=== PATIENT | male | born 1935 | race Caucasian/White ===

== ENCOUNTER 2019-09-25 22:06 | Inpatient (IN) | payer OTHER, MEDICARE ==
[~2019-09-25] VITALS: Ht 170.2 cm; Wt 80.0 kg
--- NOTE | ~2019-09-25 | EMS ---
[address] [address] EMS Patient Care Report Name: BITA MASCORRO V Room #: REG AYUSH Sears#: [id number] Admission: 09/25/19 Attend Phys: Discharge: Date of : 37 Report #: [id number] THIS REPORT FOR: //name// Report Transmitted: 09/25/2019 22:24 EMS Care Summary [facility] MED-ACT Incident [id number] @ 09/25/2019 21:23 Incident Location [address] [place] [address] Patient SILVIA MASCORRO Male, 84 Years 1935 Patient Address [address] [place] [address] Patient History Hypertension (HTN), Patient Allergies Codeine, Patient Medications Keppra, Gabapentin, Cozaar, Metformin, Celebrex, Pravastatin, Chief Complaint "He said, 'Pain' and then vomitted .." Disposition Transported No Lights/[place] Dispatch Reason Falls Transported To [facility] Narrative "He said, 'Pain' and vomited.. I found him lying on the bathroom floor" [address] [address] EMS Patient Care Report Name: BITA MASCORRO V Room #: REG [place]#: [id number] Admission: 09/25/19 Attend Phys: Discharge: Date of : 37 Report #: [id number] responded with S47 on a PT that had fallen. Upon our arrival the PT was found lying on his right side in his bed of the [facility] facility, unresponsive and breathing. The staff report that they had found the PT lying on the bathroom floor when they came to check on a medication patch that was located on his back. The staff report that they had moved the PT to his bed and that the PT declared the word, "Pain" and vomited one time containing normal stomach contents and now appears to be acting altered. The staff denied that the PT was referring to a specific area or location. The PT's son arrived at the facility and reported that the PT is normally able to hold a conversation yet is very stubborn and requires assistance hearing and uses hearing aids. The PT's son reports that the PT had his urine sent out today to be tested for a UTI and that they are still awaiting results. The PT's son advised that the PT does not have any past medical history involving pulmonary issues. The PT's son mentioned that the PT has not had any general complaints over the past few days. The facility staff report that the PT has his temperature checked twice a day and has been fever free. The staff also mentioned that the PT does not normally wear Oxygen. The PT was slid from his bed to the cot using a draw sheet, draped with a sheet and secured using the cot straps provided. The PT was then attached to the panelboard operator and an IV was established prior to movement to the ambulance. Treatment - Assessment, Vital Signs, 3 Lead EKG, 12 Lead EKG, IV 20 GA Left Forearm, Normal Saline 300 cc's via IV, Blood Glucose Analysis (216 mg/dL), End Tidal Capnography via Nasal Cannula, Oxygen via Non Rebreather at 15 LPM The PT's son and facility staff requested the PT be transported to [facility]. The PT remained the same throughout the duration of our care opening his eyes occasionally, tracking responders and moving his arms to include pulling off his facemask and Nasal Cannula. The PT was delivered to exam room 8 and a verbal report was given to the attending RN without incident. Initial Vitals @22:00P: 137,R: 23,BP: 132/79,Pain: 0/10,GCS: 9,EtCO2: 18,SpO2: 81,Revised Trauma: 11,VA Suspected: false @21:53P: 136,R: 22,Pain: 0/10,GCS: 9,SpO2: 78,VA Suspected: false @21:41P: 137,R: 22,Pain: 0/10,GCS: 9,SpO2: 73,VA Suspected: false @21:50P: 135,R: 22,BP: 101/68,Pain: 0/10,GCS: 9,SpO2: 77,Revised Trauma: 11,VA Suspected: false @21:58P: 130,R: 22,Pain: 0/10,GCS: 9,EtCO2: 21,SpO2: 85,VA Suspected: false @21:42P: 136,R: 22,BP: 76/51,Pain: 0/10,GCS: 9,SpO2: 69,Revised Trauma: 10,VA Suspected: false @21:46P: 136,R: 22,BP: 91/59,Pain: 0/10,GCS: 9,SpO2: 68,Revised Trauma: 11,VA Suspected: false @21:49P: 133,R: 22,Pain: 0/10,GCS: 9,SpO2: 76,VA Suspected: false @21:55P: 135,R: 29,Pain: 0/10,GCS: 9,EtCO2: 22,SpO2: 77,VA Suspected: false @21:35P: 146,R: 22,Pain: 0/10,GCS: 9,SpO2: 73,VA Suspected: false [facility] [address] [place] [address] EMS Patient Care Report Name: BITA MASCORRO V Room #: REG [facility]#: [id number] Admission: 09/25/19 Attend Phys: Discharge: Date of : 36 Report #: [id number] @21:42P: 134,R: 22,Pain: 0/10,GCS: 15,SpO2: 68,VA Suspected: false @21:37P: 144,R: 22,BP: 115/62,Pain: 0/10,GCS: 9,Glucose: 216,SpO2: 82,Revised Trauma: 11,VA Suspected: false Assessments @21:36MENTAL:Unresponsive,SKIN:Pale,HEENT:Eyes: No Abnormalities,Neck/Airway: No Abnormalities,LUNG SOUNDS:General: Vomiting,ABDOMEN:General: Vomiting,PELVIS//GI:No Abnormalities,EXTREMITIES:Left Arm: No Abnormalities,Right Arm: No Abnormalities,PULSE:NEURO: Impression Altered Mental Status Procedures @21:5312-Lead ECGResponse: UnchangedSucceeded@21:4212-Lead ECGResponse: UnchangedSucceeded@21:43Oxygen FlowRate: 2 Device: Nasal Cannula (NC) Response: UnchangedSucceeded@21:57Oxygen FlowRate: 10 Device: Non Re-breather Mask (NRB) Response: UnchangedSucceeded@21:55Oxygen FlowRate: 2 Device: CO2 Nasal Cannula Response: UnchangedSucceeded@21:42Saline Lock 10cc (20 ga) Site: Forearm-LeftResponse: UnchangedSucceeded@21:54Normal Saline (.9% NaCl) 300cc () Site: Forearm-LeftResponse: Improved Timeline 21:21,Call Received 21:21,Psap Call 21:23,Dispatched 21:25,En Route 21:32,On Scene 21:34,At Patient 21:35,BP: / M,PULSE: 146,RR: 22 R,SPO2: 73 Ox,ETCO2: ,BG: ,PAIN: 0,GCS: 9, 21:37,BP: 115/62 M,PULSE: 144,RR: 22 R,SPO2: 82 Ox,ETCO2: ,B,PAIN: 0,GCS: 9, 21:41,BP: / M,PULSE: 137,RR: 22 R,SPO2: 73 Ox,ETCO2: ,BG: ,PAIN: 0,GCS: 9, 21:42,Saline Lock 10cc 20 ga Site: Forearm-Left,Response: UnchangedSucceeded, 21:42,BP: 76/51 M,PULSE: 136,RR: 22 R,SPO2: 69 Ox,ETCO2: ,BG: ,PAIN: 0,GCS: 9, 21:42,12-Lead ECG,Response: UnchangedSucceeded, 21:42,BP: / M,PULSE: 134,RR: 22 R,SPO2: 68 Ox,ETCO2: ,BG: ,PAIN: 0,GCS: 15, 21:43,Oxygen FlowRate: 2 Device: Nasal Cannula (NC) Response: UnchangedSucceeded, 21:46,BP: 91/59 M,PULSE: 136,RR: 22 R,SPO2: 68 Ox,ETCO2: ,BG: ,PAIN: 0,GCS: 9, 21:49,BP: / M,PULSE: 133,RR: 22 R,SPO2: 76 Ox,ETCO2: ,BG: ,PAIN: 0,GCS: 9, 21:50,BP: 101/68 M,PULSE: 135,RR: 22 R,SPO2: 77 Ox,ETCO2: ,BG: ,PAIN: 0,GCS: 9, 21:53,12-Lead ECG,Response: UnchangedSucceeded, 21:53,BP: / M,PULSE: 136,RR: 22 R,SPO2: 78 Ox,ETCO2: ,BG: ,PAIN: 0,GCS: 9, 21:54,Normal Saline (.9% NaCl) 300cc Site: Forearm-Left,Response: Improved 21:55,Oxygen FlowRate: 2 Device: CO2 Nasal Cannula Response: UnchangedSucceeded, [facility] [address] [place] [address] EMS Patient Care Report Name: BITA MASCORRO V Room #: REG [facility].#: [id number] Admission: 09/25/19 Attend Phys: Discharge: Date of : 37 Report #: [id number] 21:55,BP: / M,PULSE: 135,RR: 29 R,SPO2: 77 Ox,ETCO2: 22 ,BG: ,PAIN: 0,GCS: 9, 21:55,Depart Scene 21:57,Oxygen FlowRate: 10 Device: Non Re-breather Mask (NRB) Response: UnchangedSucceeded, 21:58,BP: / M,PULSE: 130,RR: 22 R,SPO2: 85 Ox,ETCO2: 21 ,BG: ,PAIN: 0,GCS: 9, 22:00,BP: 132/79 M,PULSE: 137,RR: 23 R,SPO2: 81 Ox,ETCO2: 18 ,BG: ,PAIN: 0,GCS: 9, 22:04,At Destination 22:35,Call Closed Disclaimer v1.1 Copyright 2020 [employer] This EMS Care Summary contains data elements from the applicable legal record (which may be displayed differently). It is designed to provide pertinent information for the following purposes: continuity of care, clinical quality, and state data reporting. The complete legal record is available to ED staff and administrators of the receiving hospital in [facility]'s Patient Tracker. All data is provided "as is."
--- NOTE | ~2019-09-25 | EEG ---
[facility] [place] [address] ELECTROENCEPHALOGRAM Name: BITA MASCORRO V Room #: 452-P [facility] IN M.R.#: [id number] Admission: 09/26/19 Attend Phys: Stanley Acuna MD Discharge: 10/01/19 Date of : 36 Report #: [id number] THIS REPORT FOR: //name// CC: Valerio Acuna DATE OF SERVICE: 09/29/2019 This patient's EEG was done to evaluate for altered mental status. EEG is severely abnormal and disorganized. It was done by using the 10-20 system of electrode placement and both referential and sequential montages were used for recording. Background activity in this patient is low voltage and difficult to determine, but it stays about 4 Hz. No active epileptiform activity was noted. IMPRESSION: This is a severely abnormal EEG, which is very disorganized and poorly formed. That is a nonspecific finding, which can occur with encephalopathy, effect of psychotropic medication, dementia, etc. No active epileptiform activity was noticed during this record. Thank you very much for this referral. By: 0916 0922 Edgar Ramírez MD /nt
[2019-09-25 22:07] VITALS: BP 135/75
[2019-09-25 22:30] LABS: ABSOLUTE NEUTROPHILS 2.6 thou/uL (1.4-8.2); BASOPHILS 0.3 % (0.0-2.0); HEMATOCRIT 38.8 % (42.0-52.0); HEMOGLOBIN 13.4 gm/dL (14.0-18.0); LYMPHOCYTES 14.6 % (24.0-44.0); MCH 36.2 pg (26.0-34.0); MCHC 34.5 g/dL (28.0-37.0); MCV 104.9 fL (80.0-100.0); MONOCYTES 2.2 % (1.0-8.0); PLATELET COUNT 322 thou/uL (150-400); POLYS 81.9 % (36.0-66.0); RBC 3.69 mil/uL (4.50-6.00); RDW 13.6 % (10.5-14.5); WBC 3.2 thou/uL (4.0-11.0)
[2019-09-25 22:42] LABS: URINE BILIRUBIN NEGATIVE (Negative); URINE BLOOD NEGATIVE (Negative); URINE CLARITY CLEAR; URINE COLOR YELLOW; URINE GLUCOSE-RANDOM* NEGATIVE (Negative); URINE KETONES 1+ (Negative); URINE LEUKOCYTES-REFLEX NEGATIVE (Negative); URINE NITRITE-REFLEX NEGATIVE (Negative); URINE PROTEIN (DIPSTICK) NEGATIVE (Negative); URINE UROBILINOGEN 0.2 E.U./dl (0.2-1.0)
[2019-09-25 22:49] LABS: ALBUMIN 3.2 g/dL (3.4-5.0); ANION GAP 18 mmol/L (7-16); BUN 23 mg/dL (7-18); CALCIUM 8.6 mg/dL (8.5-10.1); CHLORIDE 100 mmol/L (98-107); CO2 16 mmol/L (21-32); CREATININE 1.5 mg/dL (0.7-1.3); GLUCOSE 220 mg/dL (74-106); POTASSIUM 4.3 mmol/L (3.5-5.1); SGOT 14 U/L (15-37); SGPT 13 U/L (30-65); SODIUM 134 mmol/L (136-145); TOTAL BILIRUBIN 0.6 mg/dL (0.2-1.0); TOTAL PROTEIN 6.7 g/dL (6.4-8.2); TROPONIN-I <0.06 ng/mL (<0.06)
[2019-09-26] VITALS (65 sets, daily range): BP systolic 87–149; BP diastolic 43–88
[2019-09-26] MEDS ORDERED: ARTIFICIAL TEAR1510 OPHTHALMIC (00:02)
[2019-09-26] MEDS ORDERED: ASA81BEC PO (00:02)
[2019-09-26] MEDS ORDERED: MUPIROCIN22 GM NASAL (00:04)
[2019-09-26] MEDS ORDERED: CELEBREX 200 M200 MG PO (00:10)
[2019-09-26] MEDS ORDERED: LAXATIVE SUPPOS10 MG RECTAL (00:11)
[2019-09-26] MEDS ORDERED: ACETAMINOPHEN325 MG PO (00:11)
[2019-09-26] MEDS ORDERED: COZAAR 25 MG TA25 M2 PO (00:12)
[2019-09-26] MEDS ORDERED: NEURONTIN 400M400 M2 PO (00:12)
[2019-09-26] MEDS ORDERED: GLIPIZIDE 10 MG10 MG PO (00:13)
[2019-09-26] MEDS ORDERED: GLUCOPHAGE1000 MG PO (00:13)
[2019-09-26] MEDS ORDERED: MIRALAX119 GM PO (00:13)
[2019-09-26] MEDS ORDERED: KEPPRA XR500 MG PO (00:14)
[2019-09-26] MEDS ORDERED: LIDODERM1 EACH TOP (00:14)
[2019-09-26] MEDS ORDERED: LOPERAMIDE2 MG PO (00:14)
[2019-09-26] MEDS ORDERED: PRAVACHOL40 MG PO (00:15)
[2019-09-26] MEDS ORDERED: NORTRIPTYLINE H10 M1 PO (00:15)
[2019-09-26] MEDS ORDERED: TRAMADOL 50 MG50 MG PO ×2 (00:16)
[2019-09-26] MEDS ORDERED: TRAZODONE HCL100 MG PO (00:17)
[2019-09-26 03:27] LABS: BE(vivo) -8.7 mmol/L (-2 to +3); HCO3 16.7 mmol/L (22.0-26.0); PCO2 34.4 mmHg (35.0-45.0); PO2 64.7 mmHg (80.0-100.0)
[2019-09-26 03:32] LABS: pH 7.305 (7.360-7.450)
[2019-09-26 04:27] LABS: CALCIUM 7.9 mg/dL (8.5-10.1); CREATININE 1.5 mg/dL (0.7-1.3)
[2019-09-26 04:28] LABS: POTASSIUM 5.6 mmol/L (3.5-5.1)
[2019-09-26 04:32] LABS: APTT 23.8 Seconds (24.5-32.8); FIBRINOGEN 344.7 mg/dL (210-360); INR 1.1; PROTIME 10.8 Seconds (9.3-11.4)
[2019-09-26 04:33] LABS: CHOLESTEROL 85 mg/dL (<200); HDL CHOLESTEROL 35 mg/dL (>40); LDL CHOLESTEROL 33 mg/dL (<100); TC:HDL 2.4 Ratio (Not establshd); TRIGLYCERIDE 88 mg/dL (<150); VLDL 18 mg/dL (<40)
[2019-09-26 04:41] LABS: SERUM ASSESSMENT Clear
--- NOTE | 2019-09-26 06:04 | NUR ---
PATIENT HAS A COCHLEAR IMPLANT THAT IS CURRENTLY WITH THE SON. PATIENT WAS HYPOXIC AND NOT ALERT ENOUGH TO WARRANT THE COCHLEAR IMPLANT. STAFF DID NOT WANT TO MISPLACE THE COCHLEAR IMPLANT, SO LEFT IT IN THE POSESSION OF THE SON
[2019-09-26 09:42] LABS: BE(vivo) -13.3 mmol/L (-2 to +3); HCO3 12.8 mmol/L (22.0-26.0); PCO2 30.8 mmHg (35.0-45.0); PO2 237.6 mmHg (80.0-100.0); pH 7.238 (7.360-7.450); sO2 99.4 % (92.0-98.0)
--- NOTE | 2019-09-26 10:34 | NUR ---
chart review. unable to visit with pt rt [facility] on ppe. covid pending. kim visited with [facility] cg at [facility]. " he is up with [facility], [facility] manage his medication, meals and laundry. had life alert on him, call light in bathroom and next to bed. has shower chair. no oxygen prior to hospital. he had been refusing this covid test here"/daycare manager. kim left message with son alma requested call back.
--- NOTE | 2019-09-26 12:45 | NUR ---
VAT PLACED 5FRTL IN RT IJ, TRIMMED AT 24CM INSERTED TO 20CM LOT#[id number] TIP AT THE CAJ, PLEASE SEE INSERTION NI FOR DETAILS
--- NOTE | 2019-09-26 14:45 | NUR ---
FAXED CLINICAL UPDATE TO THE [facility] SPOKE WITH LIAM IN ADM SHE RECEIVED REFERRAL AND WILL REVIEW. DP TO FOLLOW.
--- NOTE | 2019-09-26 16:06 | EKG ---
[facility] [place] [address] ELECTROCARDIOGRAM REPORT Name: BITA MASCORRO V Room #: 239-P ADM IN M.R.#: [id number] Admission: 09/26/19 Attend Phys: Stanley Acuna MD Discharge: Date of : 36 Report #: [id number] THIS REPORT FOR: cc: Valerio Go James D. DO Couchonnal, Luis F. MD ~ THIS REPORT FOR: //name// [facility] ED Test Date: 2019-09-25 Test Time: 22:35:25 Pat Name: BITA MASCORRO Department: Room: 239 Gender: M Fish And Wildlife Warden: jose eduardo jay rn : 1935 Requested By: Andry Huerta Order Number: [id number] MD: Matt Hdz Measurements Intervals [place] Rate: 134 P: 30 NH: 104 QRS: 30 QRSD: 134 T: 40 QT: 390 QTc: 583 Interpretive Statements Sinus tachycardia Right bundle branch block No previous ECG available for comparison Electronically Signed On 09-26-2019 16:05:50 CDT by Matt Hdz [email or web address] <ELECTRONICALLY SIGNED> By: Matt Hdz MD 09/26/19 1605 34 34 Matt Hdz MD /EPI
--- NOTE | 2019-09-26 16:20 | NUR ---
PT ADMITED TO ICU AT 0720 TO BEGIN SEPSIS PROTOCAL. UPON ARRIVAL PT HAS AMS AND INCREASED WORK OF BREATHING. PULMONARY WAS INFORMED AND THE DECISION TO INTUBATE WAS MADE. PT INTUBATED AT BEDSIDE AT 0845. CO2 DETECTION USED.
[2019-09-27] VITALS (76 sets, daily range): BP systolic 75–138; BP diastolic 42–89
[2019-09-27 01:06] LABS: GLYCOHEMOGLOBIN (HGB A1C) 5.4 % (4.8-5.6)
--- NOTE | 2019-09-27 03:33 | NUR ---
ASSUMED PT CARE A 1900. VSS. INTUBATED AND SEDATED. SEDATION VACATION FOR 10 MINUTES FROM PROPOFOL AND 40MCGS. HE FACIAL GRIMACES TO PAIN, REACHES FOR HIS TUBE, RANDOMLY MOVES HIS EXTREMITIES, GETS RESTLESS, WILL SQUEEZ HANDS BUT DOESNT FOLLOW COMMANDS. LEVO DOWN TO 4MCG FROM 8MC. PT TOLERATING TITRATION WELL. PT APPEARS STABLE, LOW GRADE FEVER NOTED, WILL CONTINUE TO CLOSLEY MONITOR
[2019-09-27 05:28] LABS: BE(vivo) -13.3 mmol/L (-2 to +3); HCO3 12.4 mmol/L (22.0-26.0); PCO2 28.2 mmHg (35.0-45.0); PO2 170.8 mmHg (80.0-100.0)
[2019-09-27 05:45] LABS: ABSOLUTE NEUTROPHILS 9.8 thou/uL (1.4-8.2); BASOPHILS 0.1 % (0.0-2.0); CALCIUM 7.4 mg/dL (8.5-10.1); CREATININE 1.1 mg/dL (0.7-1.3); HEMATOCRIT 29.3 % (42.0-52.0); MCH 36.6 pg (26.0-34.0); MCHC 34.8 g/dL (28.0-37.0); MCV 105.1 fL (80.0-100.0); MONOCYTES 2.3 % (1.0-8.0); POLYS 94.6 % (36.0-66.0); POTASSIUM 3.7 mmol/L (3.5-5.1); RBC 2.79 mil/uL (4.50-6.00); RDW 14.1 % (10.5-14.5); WBC 10.3 thou/uL (4.0-11.0)
[2019-09-27 05:46] LABS: HEMOGLOBIN 10.2 gm/dL (14.0-18.0); PLATELET COUNT 223 thou/uL (150-400)
[2019-09-27 09:50] LABS: CALCIUM 7.2 mg/dL (8.5-10.1); POTASSIUM 3.6 mmol/L (3.5-5.1)
--- NOTE | 2019-09-27 15:41 | NUR ---
Nutrition: NPO day 2 on vent. REC initiate tube feeds of Vital HP to reach 45 mL/hr goal rate.
--- NOTE | 2019-09-27 15:49 | NUR ---
ASSUMED CARE AT 0700. PATIENT PLACED ON SEDATION VACATION AND PATIENT WAS ABLE TO SQUEEZE HANDS AND OPEN EYES UPON REQUEST. MADE CONTACT WITH FAMILY AT 0800 AND UPDATED AND EDUCATED PATIENT AND FAMILY ON THE PLAN OF CARE. AFEBRILE. ADEQUATE UOP. CVP MONITORING IN PLACE. PATIENT HAD A SMALL BM. NEUROLOGY WAS CONSULTED. PROPOFOL @ 50 AND LEVOPHED @ 2. RT LOWERED PEEP FROM 10 TO 8 @ 1600 PER PULMONOLOGY. PATIENT PROGRESSING TOWARDS THE PLAN OF CARE. SPOKE WITH FAMILY AND THEY WOULD LIKE TO SPEAK WITH PHYSICIAN. DR. TOMLINSON GIVEN FAMILY'S INFORMATION AND NOTIFIED OF FAMILY'S REQUEST.
--- NOTE | 2019-09-27 16:13 | NUR ---
ORDERS RECEIVED YESTERDAY FOR PT EVAL AND TREAT. Pt WAS PENDING COVID TESTING AT THE TIME WHICH HAS SINCE COME BACK NEGATIVE. HOWEVER Pt WAS URGENTLY INTUBATED AND IS CURRENTLY ON VENTILATOR WITH PROPOFOL AND LEVO ON BOARD. D/T TRANSFER TO ICU FOR HIGHER LEVEL OF CARE AND NEED FOR INTUBATION, WILL NEED NEW PT CONSULT PRIOR TO INITIATING PT INTERVENTIONS WITH Pt ONCE MEDICALLY STABLE.
--- NOTE | 2019-09-27 20:09 | NUR ---
Received a call from Marck who stated that he was a medical doctor and brother in law to Emil EMERSON to the patient. He had the privacy code and asked for an update on patient. Stated that the patient is supposed to be DNR and that no Dr has spoken to the DPOA since the pt was admitted. He asked if I could contact the hospitalist and ask them to call the [facility].I called AUTOMATIC COIL MACHINE OPERATOR Tiffany and updated on the situation, she said she will call Emil the [facility] .l looked on the chart for and paperwork that states pt's code status, l could not find any paperwork from [facility] in [place] where the patient came from. I called the retirement at [phone] and spoke to Lauryn JOSHUA and she confirmed that pt was DNR, l asked her to fax the papers to ICU.
--- NOTE | 2019-09-27 23:37 | NUR ---
Pt's code status changed to intubation only and not to resuscitate, verified order with Ariana RN and DNR bracelet placed on pt.
[2019-09-28] VITALS (69 sets, daily range): BP systolic 87–166; BP diastolic 50–92
--- NOTE | 2019-09-28 03:59 | HC ---
[facility] [place] [address] CONSULTATION Name: BITA MASCORRO V Room #: 239-P [facility] IN M.R.#: [id number] Admission: 09/26/19 Attend Phys: Stanley Acuna MD Discharge: Date of : 36 Report #: [id number] THIS REPORT FOR: cc: Valerio Go James D. DO Khosla, Parveen K. MD ~ CC: Valerio Acuna DATE OF SERVICE: 09/27/2019 HISTORY OF PRESENT ILLNESS: This is an 84-year-old male patient who was intubated and he cannot provide any history at all. I talked to Dr. Gabriel earlier today and I talked to the nurses. This patient is sedated. This patient was admitted with significant amount of hypoxia. He apparently has a history of dementia and possible seizure. That is all the history I can get on him. We will try to get more history tomorrow. REVIEW OF SYSTEMS: A 14-point review of system, the best it could be carried from the record is that the patient has unsteadiness of the gait, generalized weakness, and hypertension. He is on Keppra at home. He does have a history of diabetes. I do not know whether he has a history of hypoglycemia or not. Presently, he is on propofol that is all the 14-point review of system I can get. PAST MEDICAL HISTORY: Positive for seizure, but I do not have any further description. FAMILY HISTORY: Unavailable. SOCIAL HISTORY: He lives in a assisted unit. PHYSICAL EXAMINATION: The patient's examination indicates the patient is unresponsive. He does not do anything for me. He did not move at all. He is intubated. Cardiac brooks, he is stable. 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 He also has a prior history of seizure. I need to get more history. I will get an EEG done and presently he is on propofol, which is a pretty good anticonvulsant, but we need to readjust the whole question of seizure by talking to the family and after an EEG to see what we can do to change his medication. [facility] [address] [place] [address] CONSULTATION Name: BITA MASCORRO V Room #: 239-P ADM IN M.R.#: [id number] Admission: 09/26/19 Attend Phys: Stanley Acuna MD Discharge: Date of : 37 Report #: [id number] Thank you very much for this referral and if you have any questions, please feel free to contact me. <ELECTRONICALLY SIGNED> By: Edgar Ramírez MD 09/28/19 0359 48 57 Edgar Ramírez MD /nt
[2019-09-28 05:31] LABS: HEMATOCRIT 29.1 % (42.0-52.0); HEMOGLOBIN 10.1 gm/dL (14.0-18.0); MCH 36.4 pg (26.0-34.0); MCHC 34.6 g/dL (28.0-37.0); MCV 105.2 fL (80.0-100.0); PLATELET COUNT 170 thou/uL (150-400); RBC 2.77 mil/uL (4.50-6.00); RDW 14.1 % (10.5-14.5); WBC 11.5 thou/uL (4.0-11.0)
[2019-09-28 05:49] LABS: CALCIUM 7.8 mg/dL (8.5-10.1); CREATININE 0.9 mg/dL (0.7-1.3); POTASSIUM 3.1 mmol/L (3.5-5.1)
--- NOTE | 2019-09-28 07:00 | NUR ---
ORDERS RECEIVED FOR OT EVAL AND TREAT, PATIENT WAS COVID TEST PENDING. RESULT IS NOW NEGATIVE HOWEVER PATIENT URGENTLY INTUBATED. D/T CHANGE IN MEDICAL STATUS, PATIENT TO BE PLACED ON HOLD AND WILL NEED NEW THERAPY ORDERS WHEN APPROPRIATE FOR INTERVENTION
--- NOTE | 2019-09-28 08:05 | NUR ---
cm received phone call from bedside nurse passing on that lawrence marquez had a friend physician call on their behalf upset stating that no md has called them and wanted cm to set up family phone call. cm education that anyone can pass on to md that family is requesting a phone call and if needed family phone meeting that can be set up. cm passed on information to hospitalist to call lawrence marquez at [phone].
[2019-09-28 08:54] LABS: FOLIC ACID 2.1 ng/mL (8.6-58.9); TSH 0.16 uIU/mL (0.358-3.740)
[2019-09-28 11:03] LABS: ABSOLUTE NEUTROPHILS 11.3 thou/uL (1.4-8.2)
[2019-09-28 11:04] LABS: ANISOCYTOSIS SLIGHT; BURR CELLS 1+; MACROCYTES SLIGHT; POIKILOCYTOSIS SLIGHT
--- NOTE | 2019-09-28 17:53 | NUR ---
1010 [facility], DISCUSSSES PATIENTS WISHES WITH DR. HERNANDEZ. FAMILY PLANS TO WITHDRAW CARE SOON. PATIENT COVID RESULTS RETURN NEGATIVE. CALLED INFECTIOUS DISEASE NURSE CORINNE TWICE AND LEFT A MESSAGE FOR DR. NAVA. AWAITING RETURNING CALL TO DETERMINE ISOLATION STATUS. REPLACD 40MEQ KCL. DECREASED RR FROM 20 TO 14. DECREASED PEEP 8 TO 6. WEANED OFF LEVOPHED AT 0851.
[2019-09-29] VITALS (60 sets, daily range): BP systolic 111–158; BP diastolic 51–99
[2019-09-29 04:28] LABS: BE(vivo) -9.9 mmol/L (-2 to +3); HCO3 14.8 mmol/L (22.0-26.0); PCO2 28.9 mmHg (35.0-45.0); PO2 102.8 mmHg (80.0-100.0); pH 7.328 (7.360-7.450); sO2 97.4 % (92.0-98.0)
[2019-09-29 05:34] LABS: HEMOGLOBIN 9.1 gm/dL (14.0-18.0); MCH 35.9 pg (26.0-34.0); MCHC 33.7 g/dL (28.0-37.0); MCV 106.5 fL (80.0-100.0); RBC 2.54 mil/uL (4.50-6.00); RDW 14.1 % (10.5-14.5); WBC 10.8 thou/uL (4.0-11.0)
[2019-09-29 06:02] LABS: CALCIUM 7.4 mg/dL (8.5-10.1); CREATININE 0.7 mg/dL (0.7-1.3)
[2019-09-29 06:04] LABS: POTASSIUM 2.8 mmol/L (3.5-5.1)
--- NOTE | 2019-09-29 06:11 | NUR ---
NOTIFIED OF CRITICAL POTASSIUM LEVEL OF 2.8. PRIMARY RN PATIENCE IN ANOTHER ROOM. NOTIFIED ELIZABETH BOB. ACTION INSTALLER 0.7. ORDER TO ADD ON MAG LEVEL TO AM LABS. ORDER TO ADMINISTER 60 MEQ OF POTASSIUM IV ONE TIME AND REDRAW POTASSIUM LEVEL AT 1300. ORDERS ENTERED. NOTIFIED PRIMARY RN OF NEW ORDERS.
--- NOTE | 2019-09-29 07:01 | NUR ---
Received a call from Dr Juarez, gave update on pt. Dr Juarez requesting that Dr HERNANDEZ call him when he rounds on patient. Freda JOSHUA now assuming care of pt and l passed on Dr Juarez's message to her.
--- NOTE | 2019-09-29 14:04 | NUR ---
pt remain intubate, tf for nutritional support. abnormal potassium lab today. kim spoke with son alma who stated " we just left there we spoke with md in icu waiting room, and just want call when get covid test results back and i think family going to decide to remove tube possible tomorrow. thank you for checking on us"/ lawrence marquez. [phone]. kim passed on information to bedside nurse to call lawrence marquez when get covid results back.
--- NOTE | 2019-09-29 19:01 | NUR ---
[address]. DR TABOR WITH FAMILY WELL. WAITING FOR SECOND SET OF COVID TESTS TO COME BACK, FIRST SET NEGATIVE. IF SECOND SET IS NEGATIVE, PT CAN COME OUT OF ISOLATION. FAMILY PLANS TO EXTUBATE TO PALLIATIVE CARE TOMORROW, 8-. CNO OK FOR 3 CHILDREN TO COME VISIT IN ROOM, SEPERATELY FOR 10-15 EACH. IF PT IS NOT NEGATIVE, FAMILY WILL HAVE TO GOWN UP AND NOT ABLE TO TOUCH PT.
--- NOTE | 2019-09-29 20:08 | NUR ---
RECEIVED A CALL FROM KIMBERLEY MASCORRO WHO IS DPOA, UPDATED HIM THAT SECOND COVID TEST IS STILL PENDING, AND THAT EEG WAS DONE TODAY. HE SAID HE WILL CALL AGAIN TOMMOROW, FOR THE RESULTS ON EEG AND COVID.
[2019-09-29 22:54] LABS: CALCIUM 7.4 mg/dL (8.5-10.1); CREATININE 0.7 mg/dL (0.7-1.3)
--- NOTE | 2019-09-29 23:00 | NUR ---
WAS NOTIFIED BY LAB OF CRITICAL POTASSIUM LEVEL 2.6. NOTIFIED PRIMARY RN PATIENCE OF THIS REPORTED VALUE.
[2019-09-29 23:03] LABS: POTASSIUM 2.6 mmol/L (3.5-5.1)
[2019-09-30] VITALS (59 sets, daily range): BP systolic 103–150; BP diastolic 54–92
[2019-09-30 09:17] LABS: CALCIUM 7.2 mg/dL (8.5-10.1); CREATININE 0.7 mg/dL (0.7-1.3); MAGNESIUM 2.1 mg/dL (1.8-2.4); POTASSIUM 3.2 mmol/L (3.5-5.1)
--- NOTE | 2019-09-30 14:05 | NUR ---
SPOKE WITH DR TABOR THIS AM. PLAN FOR EXTUBATION TO PALLATIVE CARE ONCE COVID TEST IS RESULTED. DR TABOR CALLED AND DISCUSSED WITH PT'S FAMILY. I SPOKE WITH PT'S DPOA, KIMBERLEY MASCORRO THIS AFTERNOON AND HE WOULD LIKE TO COME VISIT FOLLOWING EXTUBATION. HE STATES IT WAS PT'S WISHES NOT TO BE INTUBATED AND TO BE DNR AND WOULD LIKE PT EXTUBATED WHEN WE HAVE COVID TEST RESULTS. CALLED AND SPOKE WITH LAB AND COVID SWAB WAS A SENDOUT AND RESULTS ARE STILL PENDING. POTASSIUM WAS 3.2 THIS AM. KCL REPLACEMENT GIVEN ORDERED. PT RESTING, WILL OPEN EYES TO STIMULI AND APPEARS TO TRACK. DOES NOT FOLLOW ANY COMMANDS BUT SPONT MVT NOTED IN ALL EXTREMITIES. PROPOFOL GTT INFUSING. WILL CONTINUE TO MONITOR.
--- NOTE | 2019-09-30 16:07 | NUR ---
PT'S FAMILY HERE TO SEE HIM APPROVED BY SWEEP PRESS OPERATOR. THEY STOOD OUTSIDE OF CLOSED DOOR SINCE PT STILL COVID PENDING. DISCUSSED PLAN OF CARE WITH FAMILY. FAMILY REQUESTING CONSULT FOR HOSPICE HOUSE FOLLOWING EXTUBATION IF PT COVID NEGATIVE. DR TOMLINSON NOTIFIED. REPORT GIVEN TO TRES COLES.
--- NOTE | 2019-09-30 20:02 | NUR ---
RN SPOKE WITH PT'S SON, KIMBERLEY EMERSON. PT SUCCESSFULLY PASSED HIS CPAP TRIAL AND FAMILY VOICED THEY DESIRE EXTUBATION. DR. HERNANDEZ PAGED AND NOTIFIED, AGREES WITH PLAN OF CARE. DAY SHIFT RN GAVE REPORT TO EDUCATIONAL COORDINATOR ON FAMILY DETAILS AND EXTUBATION.
--- NOTE | 2019-09-30 22:17 | NUR ---
PT EXTUBATED TO PALLIATIVE CARE, SPOKE WITH KIMBERLEY POST EXTUBATION. DISCUSSED PLAN OF COMFORT CARE. AND TO GIVE MORPHINE FOR SOA. FAMILY UNDERSTANDS, AND WILL CALL THEM WITH NEW ROOM NUMBER UPON TRANSFER. REPORT CALLED TO RN.
--- NOTE | 2019-10-01 07:23 | NUR ---
PATIENT TRANSFERRED FROM ICU 239 AT 2235 WITH TWO AIDES. 02 NON REBREATHER AT 15 WITH MASK. [place] TO D/D WITH CLEAR YELLOW URINE. TURNS. IVF INFUSING PER ORDER. BLOOD SUGARS NOT DONE DUE TO PALLIATIVE CARE. ICU NURSE STATED THAT THERE IS A POSSIBLILITY THAT MORE MEDS WILL BE REMOVED. PATIENTS CHILDREN DID NOT COME TO THE FLOOR TO VISIT ALTHOUGH THEY HAD CLEARANCE FOR LAST NIGHT. WILL MONITOR FOR TODAY. GIVEN MORPHINE X1 FOR BREATHING. WILL MONITOR.
--- NOTE | 2019-10-01 11:39 | NUR ---
Assumed pt care at 7am.Pt in bed with nr mask.Pt has labored breathing and was repositioned for comfort.When making round at 0740,pt breathing was shallow. Rt paged but around 0745,pt .Larry Ferraro and Angel notified followed by family.Pt was pronounced by 2rns. summary protocol completed. Family here and solution maker here for emotional support.Post care given and security pick body up at 1150.
== END 2019-10-01 11:50 | DRG 870 ==
LOC: ER 22:06 → EROBS 09-26 02:15 → ICU 09-26 02:15 → EROBS 09-26 02:15 → ICU 09-26 07:40 → 4W 09-30 22:48
PROVIDERS: Emergency Medicine; Internal Medicine; Internal Medicine Pulmonary Disease; Nurse Practitioner Family; ADMIT Hospitalist; ATTEND Hospitalist
PROC: 0BH17EZ Insertion of Endotracheal Airway into Trachea, Via Natural or Artificial Opening (ICD-10-PCS; principal; 2019-09-26)
PROC: 5A1955Z Respiratory Ventilation, Greater than 96 Consecutive Hours (ICD-10-PCS; 2019-09-26)
PROC: 02HV33Z Insertion of Infusion Device into Superior Vena Cava, Percutaneous Approach (ICD-10-PCS; 2019-09-26)
DX: A41.9 Sepsis, unspecified organism (principal); J96.01 Acute respiratory failure with hypoxia; J69.0 Pneumonitis due to inhalation of food and vomit; R65.21 Severe sepsis with septic shock; N17.9 Acute kidney failure, unspecified; F03.90 Unspecified dementia, unspecified severity, without behavioral disturbance, psychotic disturbance, mood disturbance, and anxiety; E11.9 Type 2 diabetes mellitus without complications; I10 Essential (primary) hypertension; E78.5 Hyperlipidemia, unspecified; F32.9 Major depressive disorder, single episode, unspecified; G40.909 Epilepsy, unspecified, not intractable, without status epilepticus; G89.29 Other chronic pain; M54.9 Dorsalgia, unspecified; G47.00 Insomnia, unspecified; R65.20 Severe sepsis without septic shock; K59.00 Constipation, unspecified; E87.6 Hypokalemia; E53.8 Deficiency of other specified B group vitamins; Z51.5 Encounter for palliative care; Z20.828 Contact with and (suspected) exposure to other viral communicable diseases; Z66 Do not resuscitate; Z79.84 Long term (current) use of oral hypoglycemic drugs; Z79.899 Other long term (current) drug therapy; Z88.5 Allergy status to narcotic agent; Z88.8 Allergy status to other drugs, medicaments and biological substances
CPT/HCPCS: 10047; 10078